=== PATIENT | male | born 1995 | race Two or more races ===

== ENCOUNTER 2019-09-22 05:34 | Day surgery (SDC) | payer OTHER ==
[2019-09-22 07:05] LABS: INTERNATIONAL RATION (INR) 1.01; PROTHROMBIN TIME 13.3 SEC (11.4-15.4)
[2019-09-22 07:06] LABS: PARTIAL THROMBOPLASTIN TIME 27.7 SEC (23.5-35.8)
[2019-09-22 07:20] LABS: BLOOD UREA NITROGEN 18 mg/dL (7-20)
[2019-09-22 07:21] LABS: RED BLOOD COUNT 4.86 10^6/uL (4.35-5.55)
[2019-09-22 07:22] LABS: MEAN CORPUSCULAR HEMOGLOBIN 21.3 pg (27.0-33.4); MEAN CORPUSCULAR HGB CONC 33.1 g/dL (32.0-36.0); PLATELET COUNT 163 10^3/uL (150-450); RED CELL DISTRIBUTION WIDTH 14.6 % (11.5-14.0)
[2019-09-22 07:23] LABS: HEMATOCRIT 31.3 % (37.9-51.0); HEMOGLOBIN 10.4 g/dL (13.5-17.0); MEAN CORPUSCULAR VOLUME 65 fl (80-97)
[2019-09-22] MEDS ORDERED: MIDAZOLAM 2 MG/2 ML INJ ONE (08:28)
[2019-09-22] MEDS ORDERED: FENTANYL CITRATE INJ/PF 100 MCG/2 ML AMPUL ONE (08:29)
--- NOTE | 2019-09-22 09:16 | RADIOLOGY REPORT (SQ) ---
EXAM DESCRIPTION: CT BIOPSY RENAL COMPLETE DATE/TIME: 09/22/2019 8:56 am REASON FOR STUDY: RECURRENT AND PERSISTENT HEMATURIA N02.8 RECURRENT AND PERSISTENT HEMATURIA W OTH MORPHOLOGIC C R80.9 PROTEINURIA, UNSPECIFIED FINDINGS: Please see combined report for performance of procedure and radiologic supervision and int erpretation. IMPRESSION: Please see combined report for performance of procedure and radiologic supervision and i nterpretation. Reading location - IP/workstation name: [email or web address]
--- NOTE | 2019-09-22 09:16 | RADIOLOGY REPORT (SQ) ---
EXAM DESCRIPTION: CT NEEDLE PLACEMENT IMAGES COMPLETED DATE/TIME: 09/22/2019 8:58 am REASON FOR STUDY: RECURRENT AND PERSISTENT HEMATURIA, RENAL BIOPSY N02.8 RECURRENT AND PERSISTENT H EMATURIA W OTH MORPHOLOGIC C R80.9 PROTEINURIA, UNSPECIFIED COMPARISON: None. RADIATION DOSE: mGy. LIMITATIONS: None. PROCEDURE: After obtaining informed consent and explaining the risks and benefits of conscious sedat ion,the patient agreed to the procedure. Preliminary CT scanning to localize the biopsy site was performed. A site was marked on the left kid nancy and time out was performed. Procedure was performed using CT fluoroscopy. Total exposure time: [address] fluoroscopic images were obtained and saved to PACS. IV conscious sedation was administered and physician direction by the registered nurse using 1.0 mill igrams of Versed and 50 micrograms of fentanyl. Physiologic monitoring was provided before, during, a nd after sedation. The total sedation time was 30 minutes. Documentation face to face time, the performing proceduralist, spent monitoring the patient: 8 minute s. After sterile skin prep with ChloraPrep, local lidocaine for skin and deep tissue anesthesia, the lef t kidney was localized. A coaxial 18 gauge needle was used to obtain 4 cores of tissue from the left kidney. The biopsy tract was embolized with Gelfoam. All CT scanners at this facility use dose modulation, iterative reconstruction, and/or weight based d osing when appropriate to reduce radiation dose to as low as reasonably achievable (ALARA). [facility]: Dose Right [facility]: CareDose [facility]: Dose Right [facility]: Teradose 4D [facility]: [employer] FINDINGS: Successful CT-guided random left renal biopsy. Pathology is pending. IMPRESSION: CT GUIDED LEFT KIDNEY CORTICAL BIOPSY. COMMENT: Patient medication list reviewed:Yes- Quality ID# [id number]:Eligible professional attests to docu menting in the medical record they obtained, updated, or reviewed the patient's current medications.. TECHNICAL DOCUMENTATION: JOB ID: [id number] Quality ID #[id number]: Final reports for procedures using fluoroscopy that document radiation exposure jasmin elliot, or exposure time and number of fluorographic images (if radiation exposure indices are not avail able) Quality ID # [id number]: Final reports with documentation of one or more dose reduction techniques (e.g., Au tomated exposure control, adjustment of the mA and/or kV according to patient size, use of iterative reconstruction technique) 2010 [employer]- All Rights Reserved Reading location - IP/workstation name: [email or web address]
[2019-09-22 11:18] VITALS: BP 130/64
== END 2019-09-22 11:15 | disposition home or self-care (01) ==
LOC: RAD 05:34
PROVIDERS: ATTEND Internal Medicine Nephrology
DX: I12.9 Hypertensive chronic kidney disease with stage 1 through stage 4 chronic kidney disease, or unspecified chronic kidney disease (principal); N18.9 Chronic kidney disease, unspecified; N02.8 Recurrent and persistent hematuria with other morphologic changes; R80.9 Proteinuria, unspecified
CPT/HCPCS: 36415; 84520; 82565; 85027; 85610; 85730; 88346 ×2; 88348 ×2; 88313 ×2; 77012; 50200; J2250; J3010